=== PATIENT | male | born 1995 | race Caucasian/White ===

== ENCOUNTER 2017-05-06 02:18 | Emergency (ER) | payer OTHER ==
[2017-05-06 02:22] VITALS: RESP 17; TEMP 100.2
[2017-05-06] MEDS ORDERED: PROMETHAZ-COD 6.25-10 MG/5 ML 5 ML CUP PO STA (02:44)
[2017-05-06] MEDS ORDERED: predniSONE 20 MG TAB PO STA (02:44)
--- NOTE | 2017-05-06 02:50 | ED ---
General Adult HPI - General Chief complaint: Upper Respiratory Infection Stated complaint: Coughing blood Time Seen by Provider: 05/06/17 02:38 Source: EMS, RN notes reviewed Mode of arrival: EMS Limitations: no limitations - History of Present Illness Initial comments: 21 yo male presents to the ER with cc of cough cold like symptoms. Patient has been states last few days she was placed on Augmentin on night he just continued to cough to the point that he had a little bit of blood mixed with the dry cough from throat irritation. He denies any high fevers with this. He states that he does not have any history of asthma. Patient was concerned because his cough just was not improving so he thought that he should be evaluated. Patient denies any recent fever, chills, chest pain, back pain, abdominal pain, nausea vomiting, numbness or tingling, dysuria or hematuria, constipation or diarrhea, headaches or visual changes, or any other current symptoms. - Related Data Previous Rx's Medication Instructions Recorded Divalproex ER [Depakote ER] 1,000 mg PO HS #60 tab 03/23/17 Escitalopram [Lexapro] 10 mg PO DAILY #30 tab 03/23/17 Nicotine 7Mg/24Hr Patch [Habitrol] 1 patch TRANSDERM DAILY #12 patch 03/23/17 Albuterol Inhaler [Ventolin Hfa 1 - 2 puff INHALATION Q4-6H PRN #1 05/06/17 Inhaler] inhaler Promethaz-Cod 6.25-10 mg/5 ml 5 ml PO Q4HR PRN #25 ml 05/06/17 [Phenergan with Codeine] predniSONE 50 mg PO DAILY #5 tab 05/06/17 Allergies Allergy/AdvReac Type Severity Reaction Status Date / Time No Known Allergies Allergy Verified 03/18/17 21:00 Review of Systems ROS Statement: Those systems with pertinent positive or pertinent negative responses have been documented in the HPI. ROS Other: All systems not noted in ROS Statement are negative. Past Medical History Past Medical History: Asthma, Pneumonia Additional Past Medical History / Comment(s): torn ACL right leg no repair done at this time. 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 History of Any Multi-Drug Resistant Organisms: None Reported Past Surgical History: No Surgical Hx Reported Additional Past Surgical History / Comment(s): wisdom teeth extraction Past Anesthesia/Blood Transfusion Reactions: No Reported Reaction Past Psychological History: ADD/ADHD, Anxiety, Depression Smoking Status: Current every day smoker - Past Family History Mother Family Medical History: Diabetes Mellitus, Hypertension Additional Family Medical History / Comment(s): MS, Fibromyalgia, stroke times two Father Family Medical History: Hyperlipidemia, Hypertension Additional Family Medical History / Comment(s): father is 55 years of age. Patient has 1 sister with no major medical problems. General Exam - General Exam Comments Initial Comments: General exam: Alert, active, comfortable in no apparent distress Head: Normocephalic Eyes: Normal reaction of pupils, equal size, normal range of extraocular motion Ears: normal external ear canals, pink tympanic membranes with normal cone of light Nose: clear with pink turbinates Throat: no erythema or exudates with normal sized tonsils Neck: no masses, no nuchal rigidity Chest: no chest wall deformity Lungs: equal air entry with no crackles, expiratory wheeze CVS: S1 and S2 normal with no audible mumurs, regular rhythm Abdomen: no hepatosplenomegaly, normal bowel sounds, no guarding or rigidity Spine: no scoliosis or deformity Skin: no rashes Neurological: No focal deficits, tone is normal in all 4 extremities Limitations: no limitations Course Vital Signs 05/06/17 05/06/17 05/06/17 02:19 02:39 03:23 Temperature 100.2 F H Pulse Rate 77 71 Respiratory 17 Rate Blood Pressure 130/80 O2 Sat by Pulse 91 L 96 Oximetry Medical Decision Making - Medical Decision Making 21-year-old female presents emergency Department chief complaint of what appears to be a bronchitis. Patient was coughing so hard that he had some throat irritation did have some flecks of blood. He denies any chest pain with this. He states after the breathing treatment shortness of breath has improved. Patient does have wheezing exam. At this time we will start patient steroids as well in addition to his Augmentin give him some cough medication. We discussed follow-up return parameters all questions. Patient stated that he understood he is given plan. He'll be discharged. - Radiology Data Radiology results: report reviewed, image reviewed Disposition Clinical Impression: Acute bronchitis Disposition: HOME SELF-CARE Condition: Stable Instructions: Acute Bronchitis (ED) Additional Instructions: Please use medication as discussed. Please follow up with family doctor if symptoms have not improved over the next two days. Please return to the emergency room if your symptoms increase or worsen or for any other concerns. Prescriptions: Albuterol Inhaler [Ventolin Hfa Inhaler] 1 - 2 puff INHALATION Q4-6H PRN #1 inhaler PRN Reason: Cough predniSONE 50 mg PO DAILY #5 tab Promethaz-Cod 6.25-10 mg/5 ml [Phenergan with Codeine] 5 ml PO Q4HR PRN #25 ml PRN Reason: Cough Referrals: Denisa Baeza MD [Primary Care Provider] - 1-2 days Time of Disposition: 03:30
--- NOTE | 2017-05-06 03:01 | XR ---
EXAM: XR Chest, 2 Views CLINICAL HISTORY: Reason: cough TECHNIQUE: Frontal and lateral views of the chest. COMPARISON: No relevant prior studies available. FINDINGS: Lungs: Unremarkable. No consolidation. Pleural space: Unremarkable. No pneumothorax. Heart: Unremarkable. No cardiomegaly. Mediastinum: Unremarkable. Bones/joints: Unremarkable. IMPRESSION: Normal chest x-rays.
[2017-05-06] MEDS ORDERED: IPRATROPIUM-ALBUTEROL 3 ML NEB INHALATION STA (03:07)
[2017-05-06 03:38] VITALS: BP 127/72; PULSE 89
== END 2017-05-06 03:40 | disposition home or self-care (01) ==
LOC: EC 02:18
DX: J20.9 Acute bronchitis, unspecified (principal); F17.200 Nicotine dependence, unspecified, uncomplicated; Z87.01 Personal history of pneumonia (recurrent)
CPT/HCPCS: 94640; 71020; 99284; J7512

== ENCOUNTER 2017-08-02 09:49 | Emergency (ER) | payer OTHER ==
[2017-08-02 10:00] VITALS: BP 142/70; PULSE 72; RESP 15; TEMP 98
--- NOTE | 2017-08-02 10:40 | ED ---
General Adult HPI - General Chief complaint: Wound/Laceration Stated complaint: Finger injury Time Seen by Provider: 08/02/17 10:10 Source: patient, RN notes reviewed Mode of arrival: ambulatory Limitations: no limitations - History of Present Illness Initial comments: Patient's a 21-year-old male who presents emergency room today with chief complaint of injury to the right ring finger. He states he was using a snowblower. Ago when he went to clean out in the tip of the blade caught just the distal aspect of the right ring finger and he immediately removed away. Patient is noted to small over the volar aspect of the right ring finger. Patient states she's noticed that his had decreased range of motion at the DIP joint. He denies any other complaints or symptoms. Patient denies any recent fever, chills, shortness of breath, chest pain, back pain, abdominal pain, nausea or vomiting, numbness or tingling, headaches or visual changes, or any other complaints. - Related Data Home Medications Medication Instructions Recorded Confirmed Escitalopram Oxalate [Lexapro] 40 mg PO DAILY 08/02/17 08/02/17 Previous Rx's Medication Instructions Recorded Divalproex ER [Depakote ER] 1,000 mg PO HS #60 tab 03/23/17 Allergies Allergy/AdvReac Type Severity Reaction Status Date / Time No Known Allergies Allergy Verified 08/02/17 10:09 Review of Systems ROS Statement: Those systems with pertinent positive or pertinent negative responses have been documented in the HPI. ROS Other: All systems not noted in ROS Statement are negative. Past Medical History Past Medical History: Asthma, Pneumonia Additional Past Medical History / Comment(s): torn ACL right leg no repair done at this time. 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 History of Any Multi-Drug Resistant Organisms: None Reported Past Surgical History: No Surgical Hx Reported Additional Past Surgical History / Comment(s): wisdom teeth extraction Past Anesthesia/Blood Transfusion Reactions: No Reported Reaction Past Psychological History: ADD/ADHD, Anxiety, Depression Smoking Status: Current every day smoker Past Alcohol Use History: None Reported Past Drug Use History: None Reported - Past Family History Mother Family Medical History: Diabetes Mellitus, Hypertension Additional Family Medical History / Comment(s): MS, Fibromyalgia, stroke times two Father Family Medical History: Hyperlipidemia, Hypertension Additional Family Medical History / Comment(s): father is 55 years of age. Patient has 1 sister with no major medical problems. General Exam - General Exam Comments Initial Comments: General: The patient is awake and alert, in no distress, and does not appear acutely ill. Neck: The neck is supple, there is no tenderness or JVD. Cardiovascular: There is a regular rate and rhythm. No murmur, rub or gallop is appreciated. Respiratory: Lungs are clear to auscultation, respirations are non-labored, breath sounds are equal. No wheezes, stridor, rales, or rhonchi. Musculoskeletal: Patient does have some swelling to the right ring finger distally. Shows good range of motion. Does have tenderness of the middle phalanx and DIP joint area. Sensations are intact pulses equal bilaterally 2+. Cap refill less than 2 seconds. Neurological: A&O x 3. CN II-XII intact, There are no obvious motor or sensory deficits. Coordination appears grossly intact. Speech is normal. Skin: There is a 0.5 cm horizontal laceration to the volar aspect of the distal phalanx of the right ring finger. No active bleeding and no open wound. Psychiatric: Normal mood and affect. Limitations: no limitations Course Vital Signs 08/02/17 09:57 Temperature 98 F Pulse Rate 72 Respiratory 15 Rate Blood Pressure 142/70 O2 Sat by Pulse 98 Oximetry Medical Decision Making - Medical Decision Making Patient reexamined at this time shows no signs of distress. His x-rays negative for any fracture or dislocation. Patient was offered finger splint here in the emergency room he states he has one at home. Patient is advised follow-up with orthopedics if symptoms aren't improved. He does show somewhat limited range of motion of the DIP joint area due to pain swelling. He is advised ice elevate to help swelling. Use ibuprofen for pain. Disposition Clinical Impression: Finger contusion Disposition: HOME SELF-CARE Condition: Good Instructions: Finger Sprain (ED) Additional Instructions: Please follow-up with the orthopedic doctor over the next few days. Please continue to ice elevate the affected area and use ibuprofen for pain. Return to emergency room for any other concerns. Referrals: Denisa Baeza MD [Primary Care Provider] - 1-2 days Tahir Shelley MD [Medical Doctor] - 1-2 days Time of Disposition: 11:07
--- NOTE | 2017-08-02 10:48 | XR ---
EXAMINATION TYPE: XR finger RT DATE OF EXAM: 08/02/2017 CLINICAL HISTORY: pain Right fourth digit. TECHNIQUE: 3 views of the Right fourth digit are submitted. COMPARISON: None FINDINGS: No displaced fracture is seen with certainty. Joint spaces are well-preserved. Correlate for soft tissue injury. IMPRESSION: No acute displaced fracture or dislocation.
== END 2017-08-02 11:15 | disposition home or self-care (01) ==
LOC: EC 09:49
DX: S60.041A Contusion of right ring finger without damage to nail, initial encounter (principal); F90.9 Attention-deficit hyperactivity disorder, unspecified type; F32.9 Major depressive disorder, single episode, unspecified; F41.9 Anxiety disorder, unspecified; F17.200 Nicotine dependence, unspecified, uncomplicated; Z79.899 Other long term (current) drug therapy; W23.0XXA Caught, crushed, jammed, or pinched between moving objects, initial encounter; Y93.29 Activity, other involving ice and snow; Y92.89 Other specified places as the place of occurrence of the external cause
CPT/HCPCS: 99283

== ENCOUNTER 2017-10-24 19:34 | Emergency (ER) | payer OTHER ==
[2017-10-24 20:12] VITALS: BP 132/69; PULSE 67; RESP 16; TEMP 98.8
[2017-10-24] MEDS ORDERED: DIPH,PERTUS(ACELL)TETVAC-LF 0.5 ML VIAL IM ONE (20:25)
--- NOTE | 2017-10-24 20:30 | ED ---
Skin/Abscess/FB HPI - General Chief complaint: Skin/Abscess/Foreign Body Stated complaint: nail puncture L foor Time Seen by Provider: 10/24/17 20:21 Source: patient, RN notes reviewed Mode of arrival: ambulatory Limitations: no limitations - History of Present Illness Initial comments: This is a 21-year-old male who presents to the emergency department with chief complaint of puncture wound to his left foot. Patient states that around 3 PM this afternoon he was doing construction on a house. He states that he stepped on a nail and it went through his boot and into his left foot just below his great toe. Patient states that he is able to bear weight and ambulate but does so with difficulty due to pain. He states that his foot feels numb. He states that it his last tetanus shot was in 2010. Denies any other injuries or trauma. Has no ALLERGIES to medications. Denies fever, chills, chest pain, shortness of breath, abdominal pain, nausea or vomiting, constipation or diarrhea, headache or vision changes. - Related Data Home Medications Medication Instructions Recorded Confirmed Escitalopram [Lexapro] 10 mg PO DAILY 10/24/17 10/24/17 Previous Rx's Medication Instructions Recorded Divalproex ER [Depakote ER] 1,000 mg PO HS #60 tab 03/23/17 Ciprofloxacin HCl 500 mg PO BID 10 Days #20 tab 10/24/17 Sulfamethox-Tmp 800-160Mg [Bactrim 1 tab PO Q12HR #20 tab 10/24/17 DS 800-160 mg] Allergies Allergy/AdvReac Type Severity Reaction Status Date / Time No Known Allergies Allergy Verified 10/24/17 20:45 Review of Systems ROS Statement: Those systems with pertinent positive or pertinent negative responses have been documented in the HPI. ROS Other: All systems not noted in ROS Statement are negative. Past Medical History Past Medical History: Asthma, Pneumonia Additional Past Medical History / Comment(s): torn ACL right leg no repair done at this time. 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 History of Any Multi-Drug Resistant Organisms: None Reported Past Surgical History: No Surgical Hx Reported Additional Past Surgical History / Comment(s): wisdom teeth extraction Past Anesthesia/Blood Transfusion Reactions: No Reported Reaction Past Psychological History: ADD/ADHD, Anxiety, Depression Smoking Status: Current every day smoker Past Alcohol Use History: None Reported Past Drug Use History: None Reported - Past Family History Mother Family Medical History: Diabetes Mellitus, Hypertension Additional Family Medical History / Comment(s): MS, Fibromyalgia, stroke times two Father Family Medical History: Hyperlipidemia, Hypertension Additional Family Medical History / Comment(s): father is 55 years of age. Patient has 1 sister with no major medical problems. General Exam - General Exam Comments Initial Comments: General: Awake and alert, well-developed; in no apparent distress. HEENT: Head atraumatic, normocephalic. Pupils are equal, round and reactive to light. Extraocular movements intact. Oropharynx moist without erythema or exudate. Neck: Supple. Normal ROM. Cardiovascular: Regular rate and rhythm. No murmurs, rubs or gallops. Chest symmetrical. Respiratory: Lungs clear to auscultation bilaterally. No wheezes, rales or rhonchi. Normal respiratory effort with no use of accessory muscles. Musculoskeletal: Normal ROM of left ankle and foot. Generalized tenderness on palpation of the distal foot. Sensation is intact. Pedal pulses are 2+ equal and palpable bilaterally. Skin: Fonda, warm and dry. Small circular puncture wound inferior to the great toe plantar surface of left foot. Neurological: Alert and oriented x3. CN II-XII grossly intact. Speech is fluent and answers are appropriate. No focal neuro deficits. Psychiatric: Normal mood and affect. No overt signs of depression or anxiety noted. Limitations: no limitations Course Vital Signs 10/24/17 20:09 Temperature 98.8 F Pulse Rate 67 Respiratory 16 Rate Blood Pressure 132/69 O2 Sat by Pulse 97 Oximetry Medical Decision Making - Medical Decision Making This is a 21-year-old male who presents to the emergency department with chief complaint of puncture wound to his left foot. He stepped on a nail earlier this afternoon. He was made up-to-date with his tetanus vaccination in the emergency department. X-ray was obtained and revealed no acute abnormalities. Patient will be started on Cipro for pseudomonal coverage and Bactrim. Patient' s vital signs are stable and he is in no acute distress. He will be discharged home at this time. He is in agreement with plan and voices understanding. All questions were answered. - Radiology Data Radiology results: report reviewed, image reviewed X-ray left foot impression: Negative left foot exam. Disposition Clinical Impression: Puncture wound Disposition: HOME SELF-CARE Condition: Good Instructions: Puncture Wound (ED) Additional Instructions: Please take medications as prescribed. Please follow up with primary care provider within 1-2 days. Return to emergency department if symptoms should worsen or any concerns arise. Prescriptions: Ciprofloxacin HCl 500 mg PO BID 10 Days #20 tab Sulfamethox-Tmp 800-160Mg [Bactrim DS 800-160 mg] 1 tab PO Q12HR #20 tab Is patient prescribed a controlled substance at d/c from ED?: No Referrals: Denisa Baeza MD [Primary Care Provider] - 1-2 days Time of Disposition: 21:03
--- NOTE | 2017-10-24 20:50 | XR ---
EXAMINATION TYPE: XR foot complete LT DATE OF EXAM: 10/24/2017 COMPARISON: NONE HISTORY: Pain and swelling TECHNIQUE: 3 views FINDINGS: I see no fracture nor dislocation. Metatarsals are intact. Joint spaces are normal. IMPRESSION: Negative left foot exam.
[2017-10-24] MEDS ORDERED: SULFAMETHOX-TMP 800-160MG 1 EACH TAB PO STA (20:59)
[2017-10-24] MEDS ORDERED: CIPROFLOXACIN HCL 500 MG TAB PO STA (20:59)
== END 2017-10-24 21:10 | disposition home or self-care (01) ==
LOC: EC 19:34
DX: S91.332A Puncture wound without foreign body, left foot, initial encounter (principal); F90.9 Attention-deficit hyperactivity disorder, unspecified type; F32.9 Major depressive disorder, single episode, unspecified; F41.9 Anxiety disorder, unspecified; F17.200 Nicotine dependence, unspecified, uncomplicated; Z23 Encounter for immunization; Z79.899 Other long term (current) drug therapy; W45.0XXA Nail entering through skin, initial encounter; Y92.89 Other specified places as the place of occurrence of the external cause
CPT/HCPCS: 90471; 90715; 99283

== ENCOUNTER 2017-11-10 23:04 | Emergency (ER) | payer OTHER ==
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
--- NOTE | 2017-11-11 00:08 | XR ---
EXAMINATION TYPE: XR ribs RT w pa chest xray DATE OF EXAM: 11/10/2017 COMPARISON: NONE HISTORY: Right rib pain TECHNIQUE: 5 views FINDINGS: Heart and mediastinum are normal. Lungs are clear. The right ribs appear intact. There is n o sign of pleural effusion or pneumothorax. IMPRESSION: Normal chest. Normal right ribs.
[2017-11-11 00:10] VITALS: BP 119/71; PULSE 59; RESP 16; TEMP 97.7
== END 2017-11-11 00:09 | disposition home or self-care (01) ==
LOC: EC 23:04
DX: S20.219A Contusion of unspecified front wall of thorax, initial encounter (principal); F32.9 Major depressive disorder, single episode, unspecified; F41.9 Anxiety disorder, unspecified; F17.200 Nicotine dependence, unspecified, uncomplicated; Z79.899 Other long term (current) drug therapy; Z82.49 Family history of ischemic heart disease and other diseases of the circulatory system; W22.8XXA Striking against or struck by other objects, initial encounter; Y92.69 Other specified industrial and construction area as the place of occurrence of the external cause; Y99.0 Civilian activity done for income or pay
CPT/HCPCS: 99284

== ENCOUNTER 2018-03-04 15:12 | Emergency (ER) | payer OTHER ==
[2018-03-04 15:34] VITALS: BP 134/67; PULSE 74; RESP 18; TEMP 98.2
[2018-03-04] MEDS ORDERED: methylPREDNISolone SOD SUCCI 125 MG/2 ML VIAL IM ONE (17:20)
--- NOTE | 2018-03-04 17:35 | XR ---
EXAMINATION: XR chest 2V DATE AND TIME: 03/04/2018 4:42 PM CLINICAL INDICATION: Pain TECHNIQUE: PA and lateral COMPARISON: 11/10/2017 FINDINGS: The lungs are clear. The pleural spaces are negative. The cardiac silhouette is not enlarged. The remainder of the mediastinal silhouette is unremarkable. The skeletal structures and soft tissues are negative for acute findings. IMPRESSION: NO ACUTE PROCESS.
--- NOTE | 2018-03-04 17:48 | ED ---
General Adult HPI - General Chief complaint: Upper Respiratory Infection Stated complaint: cough/2 wks Time Seen by Provider: 03/04/18 16:12 Source: patient, RN notes reviewed Mode of arrival: ambulatory Limitations: no limitations - History of Present Illness Initial comments: 22-year-old male presents to the emergency department for a chief complaint of cough 2 weeks. Patient states the cough is a dry cough. He denies any productivity. Patient admits to mild shortness of breath when coughing. He denies fevers or chills at home. Patient denies any chest pain. Patient admits to a childhood history of asthma but has not had any symptoms of asthma since he was 9 years old. Patient is a smoker daily. Patient states he tried a breathing treatment at home because his mother had some and it made him feel "weird" so he does not want one here. Patient has no other complaints at this time including chest pain, abdominal pain, nausea or vomiting, headache, or visual changes. - Related Data Home Medications Medication Instructions Recorded Confirmed Escitalopram [Lexapro] 10 mg PO DAILY 10/24/17 11/10/17 Previous Rx's Medication Instructions Recorded Divalproex ER [Depakote ER] 1,000 mg PO HS #60 tab 03/23/17 Albuterol Inhaler [Ventolin Hfa 1 - 2 puff INHALATION Q6HR PRN #1 03/04/18 Inhaler] inhaler Azithromycin [Zithromax Z-pack] 250 mg PO DIRECTED #6 tab 03/04/18 Benzonatate [Tessalon Perles] 200 mg PO Q8H PRN #15 capsule 03/04/18 predniSONE 50 mg PO DAILY #5 tablet 03/04/18 Allergies Allergy/AdvReac Type Severity Reaction Status Date / Time No Known Allergies Allergy Verified 03/04/18 15:34 Review of Systems ROS Statement: Those systems with pertinent positive or pertinent negative responses have been documented in the HPI. ROS Other: All systems not noted in ROS Statement are negative. Past Medical History Past Medical History: Asthma, Pneumonia Additional Past Medical History / Comment(s): torn ACL right leg no repair done at this time. 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 History of Any Multi-Drug Resistant Organisms: None Reported Past Surgical History: No Surgical Hx Reported Additional Past Surgical History / Comment(s): wisdom teeth extraction Past Anesthesia/Blood Transfusion Reactions: No Reported Reaction Past Psychological History: ADD/ADHD, Anxiety, Depression Smoking Status: Current every day smoker Past Alcohol Use History: None Reported Past Drug Use History: None Reported - Past Family History Mother Family Medical History: Diabetes Mellitus, Hypertension Additional Family Medical History / Comment(s): MS, Fibromyalgia, stroke times two Father Family Medical History: Hyperlipidemia, Hypertension Additional Family Medical History / Comment(s): father is 55 years of age. Patient has 1 sister with no major medical problems. General Exam Limitations: no limitations General appearance: alert (Patient is sleeping in the emergency department in no acute distress), in no apparent distress Head exam: Present: atraumatic, normocephalic, normal inspection Eye exam: Present: normal appearance. Absent: scleral icterus, conjunctival injection ENT exam: Present: normal exam, mucous membranes moist Neck exam: Present: normal inspection, full ROM. Absent: tenderness, meningismus, lymphadenopathy Respiratory exam: Present: wheezes (Wheezing noted throughout all lung stoll.) , other (Patient does not appear in distress, no difficulty breathing, non- labored breathing). Absent: respiratory distress, rales, rhonchi, stridor, chest wall tenderness, accessory muscle use, decreased breath sounds, prolonged expiratory Cardiovascular Exam: Present: regular rate, normal rhythm, normal heart sounds. Absent: systolic murmur, diastolic murmur, rubs, gallop, clicks Extremities exam: Present: full ROM (Moving all extremities without difficulty) Neurological exam: Present: alert, oriented X3, CN II-XII intact Psychiatric exam: Present: normal affect, normal mood Course Vital Signs 03/04/18 15:33 Temperature 98.2 F Pulse Rate 74 Respiratory 18 Rate Blood Pressure 134/67 O2 Sat by Pulse 98 Oximetry Medical Decision Making - Medical Decision Making 22-year-old male presents the emergency department for a chief complaint of cough 2 weeks along with mild shortness of breath when coughing. Patient denies chest pain. Patient does have a history of childhood asthma but has not had any symptoms since that time. Patient is a smoker. Patient states cough is nonproductive. Denies fevers or chills at home. Temp 98.2 in the emergency department with a pulse rate of 74. Respiratory rate 18 with a pulse ox of 98% on room air. On exam patient has wheezing noted throughout lung stoll. Patient refused DuoNeb at this time as he had one of his mothers breathing treatment and it made him feel "weird." Did discuss it could help break up mucus and improve his wheezing but he still refuses. Patient given IM Solu- Medrol in the emergency department. Chest x-ray shows no acute process. Pleural spaces are negative. On reevaluation patient is still in no acute distress, no shortness of breath or difficulty breathing. Patient will be given steroids, azithromycin, inhaler, and Tessalon Perles. He will follow up with primary care in 1-2 days. He will return if he has any worsening symptoms such as fever or increased shortness of breath. He was also advised to quit smoking or at least to decrease smoking as much as possible. Disposition Clinical Impression: Cough Disposition: HOME SELF-CARE Condition: Good Instructions: Upper Respiratory Infection (ED) Prescriptions: Albuterol Inhaler [Ventolin Hfa Inhaler] 1 - 2 puff INHALATION Q6HR PRN #1 inhaler PRN Reason: Shortness Of Breath Azithromycin [Zithromax Z-pack] 250 mg PO DIRECTED #6 tab Benzonatate [Tessalon Perles] 200 mg PO Q8H PRN #15 capsule PRN Reason: Cough predniSONE 50 mg PO DAILY #5 tablet Is patient prescribed a controlled substance at d/c from ED?: No Referrals: Denisa Baeza MD [Primary Care Provider] - 1-2 days Time of Disposition: 17:44
== END 2018-03-04 19:07 | disposition home or self-care (01) ==
LOC: EC 15:12
DX: R05 Cough (principal); R06.2 Wheezing; R06.02 Shortness of breath; Q33.3 Agenesis of lung; F32.9 Major depressive disorder, single episode, unspecified; F41.9 Anxiety disorder, unspecified; F17.200 Nicotine dependence, unspecified, uncomplicated; Z79.899 Other long term (current) drug therapy; Z87.09 Personal history of other diseases of the respiratory system
CPT/HCPCS: 99284; 96372; 71046; J2930

== ENCOUNTER 2018-06-28 20:35 | Emergency (ER) | payer OTHER ==
[2018-06-28 20:44] VITALS: BP 114/75; PULSE 78; RESP 18; TEMP 98.1
--- NOTE | 2018-06-28 21:02 | ED ---
General Adult HPI - General Chief complaint: Wound/Laceration Stated complaint: [facility] Lac on finger, rt hand Source: patient, RN notes reviewed, old records reviewed Mode of arrival: ambulatory Limitations: no limitations - History of Present Illness Initial comments: 21-year-old male patient with past medical history of bipolar 1 disorder, depression presents in ED with laceration to PIP joint on second digit of right hand. Patient states that earlier today he was using a drill when the bit made contact with his glove at the PIP joint. Patient states that he suffered a small laceration and was bleeding. Patient denies the drillbit breaking or any foreign body. Patient has full range of motion of digit. Patient denies all other complaints. Patient states that he had his tetanus updated last year. Systemic: Pt denies fatigue, myalgia, fever/chills, rash. Pt denies weakness, night sweats, weight loss. Neuro: Pt denies headache, visual disturbances, syncope or pre-syncope. HEENT: Pt denies ocular discharge or irritation, otalgia, rhinorrhea, pharyngitis or notable lymphadenopathy. Cardiopulmonary: Pt denies chest pain, SOB, heart palpitations, dyspnea on exertion. Abdominal/GI: Pt denies abdominal pain, n/v/d. : Pt denies dysuria, burning w/ urination, frequency/urgency. Denies new onset urinary or bowel incontinence. MSK: Pt denies myalgia, loss of strength or function in extremities. Neuro: Pt denies new onset weakness, paresthesias. - Related Data Home Medications Medication Instructions Recorded Confirmed Escitalopram [Lexapro] 10 mg PO DAILY 10/24/17 11/10/17 Previous Rx's Medication Instructions Recorded Divalproex ER [Depakote ER] 1,000 mg PO HS #60 tab 03/23/17 Albuterol Inhaler [Ventolin Hfa 1 - 2 puff INHALATION Q6HR PRN #1 03/04/18 Inhaler] inhaler Azithromycin [Zithromax Z-pack] 250 mg PO DIRECTED #6 tab 03/04/18 Benzonatate [Tessalon Perles] 200 mg PO Q8H PRN #15 capsule 03/04/18 predniSONE 50 mg PO DAILY #5 tablet 03/04/18 Allergies Allergy/AdvReac Type Severity Reaction Status Date / Time No Known Allergies Allergy Verified 06/28/18 20:44 Review of Systems ROS Statement: Those systems with pertinent positive or pertinent negative responses have been documented in the HPI. ROS Other: All systems not noted in ROS Statement are negative. Past Medical History Past Medical History: Asthma, Pneumonia Additional Past Medical History / Comment(s): torn ACL right leg no repair done at this time. 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 History of Any Multi-Drug Resistant Organisms: None Reported Past Surgical History: No Surgical Hx Reported Additional Past Surgical History / Comment(s): wisdom teeth extraction Past Anesthesia/Blood Transfusion Reactions: No Reported Reaction Past Psychological History: ADD/ADHD, Anxiety, Depression Smoking Status: Current every day smoker Past Alcohol Use History: None Reported Past Drug Use History: None Reported - Past Family History Mother Family Medical History: Diabetes Mellitus, Hypertension Additional Family Medical History / Comment(s): MS, Fibromyalgia, stroke times two Father Family Medical History: Hyperlipidemia, Hypertension Additional Family Medical History / Comment(s): father is 55 years of age. Patient has 1 sister with no major medical problems. General Exam - General Exam Comments Initial Comments: Constitutional: NAD, AOX3, Pt has pleasant affect. HEENT: NC/AT, trachea midline, neck supple, no lymphadenopathy. Posterior pharynx non erythematous, without exudates. External ears appear normal, without discharge. Mucous membranes moist. Eyes PERRLA, EOM intact. There is no scleral icterus. No pallor noted. Cardiopulmonary: RRR, no murmurs, rubs or gallops, no JVD noted. Lungs CTAB in anterior and posterior stoll. No peripheral edema. Abdominal exam: Abdomen soft and non-distended. Abdomen non-tender to palpation in all 4 quadrants. Bowel sounds active in LLQ. No hepatosplenomegaly. No ecchymosis Neuro: CN II-XII grossly intact. No nuchal rigidity. MSK: 1 CM laceration noted at PIP joint on 2nd digit of R hand. No other injury noted, neurovascularly intact capillary refill <2 seconds. Flexion/extension intact at MCP joint, PIP joint, ETHAN joint. Wound explored, no bony or ligamentous involvement. No foreign body. No posterior calf tenderness bilaterally, homans sign negative bilaterally. Posterior tibialis and radial pulse +2 bilaterally. Sensation intact in upper and lower extremities. Full active ROM in upper and lower extremities, 5/5 stregnth. Limitations: no limitations Course Vital Signs 06/28/18 20:41 Temperature 98.1 F Pulse Rate 78 Respiratory 18 Rate Blood Pressure 114/75 O2 Sat by Pulse 98 Oximetry Procedures - Laceration Laceration #1 Consent Obtained: verbal consent Time Out Performed: Yes Indication: laceration Site: hand Size (cm): 1 Description: linear Depth: simple, single layer Anesthetic Used: lidocaine 1% Anesthesia Technique: local infiltration Amount (mls): 1 Pre-repair: wound explored, deep structures intact Type of Sutures: nylon Size of Sutures: 5-0 Number of Sutures: 2 Technique: simple, interrupted Patient Tolerated Procedure: well, no complications Medical Decision Making - Medical Decision Making 21-year-old male patient with past medical history of bipolar 1 disorder, depression presents in ED with laceration to PIP joint on second digit of right hand. Patient states that earlier today he was using a drill when the bit made contact with his glove at the PIP joint. Patient states that he suffered a small laceration and was bleeding. 1 CM laceration noted at PIP joint on 2nd digit of R hand. No other injury noted, neurovascularly intact capillary refill <2 seconds. Flexion/extension intact at MCP joint, PIP joint, ETHAN joint. Wound explored, no bony or ligamentous involvement. No foreign body. Plain film of right hand didn't display any acute fracture or foreign body. Wound closed with 2 simple interrpted sutures. Pt to return in 7-10 days for suture removal. Patient educated extensively about signs symptoms of infection, patient verbalized understanding. Patient to f/u with PCP in 1-2 days. Pt to return to ED if new s/sx develop or if condition worsens in anyway. Case discussed in depth with Dr. Monaco. Disposition Clinical Impression: Laceration Disposition: HOME SELF-CARE Condition: Good Instructions: Care For Your Stitches (ED), Laceration (ED) Additional Instructions: Patient to adhere to previously discussed treatment plan and will take medication(s) as directed. Patient to follow up with PCP in 1-2 days. Patient to return to ED if symptoms do not improve. Is patient prescribed a controlled substance at d/c from ED?: No Referrals: None,Stated [Primary Care Provider] - 1-2 days Time of Disposition: 22:24
--- NOTE | 2018-06-28 21:46 | XR ---
EXAMINATION TYPE: XR hand complete RT DATE OF EXAM: 06/28/2018 COMPARISON: 08/02/2017 HISTORY: Interval but lacerated index finger TECHNIQUE: Three-view right hand FINDINGS: No acute fractures are evident. Joint spaces are preserved. Soft tissues appear preserved. No radiopaque foreign body is evident. IMPRESSION: 1. No acute fracture. 2. No foreign body.
[2018-06-28] MEDS ORDERED: TOPICAL SKIN ADHESIVE 1 EACH AMP TOPICAL ONE (21:55)
[2018-06-28] MEDS ORDERED: LIDOCAINE 1% INJ 10MG/ML (20 ML MDV) SQ STA (21:59)
== END 2018-06-28 22:33 | disposition home or self-care (01) ==
LOC: EC 20:35
DX: S61.210A Laceration without foreign body of right index finger without damage to nail, initial encounter (principal); F41.9 Anxiety disorder, unspecified; F32.9 Major depressive disorder, single episode, unspecified; F17.200 Nicotine dependence, unspecified, uncomplicated; Z79.899 Other long term (current) drug therapy; W26.8XXA Contact with other sharp object(s), not elsewhere classified, initial encounter; Y92.69 Other specified industrial and construction area as the place of occurrence of the external cause; Y99.0 Civilian activity done for income or pay
CPT/HCPCS: 73130; 99283; 12001; J2001

== ENCOUNTER 2018-09-24 22:12 | Emergency (ER) | payer OTHER ==
[2018-09-24 22:36] VITALS: BP 109/70; PULSE 57; RESP 18; TEMP 98.6
--- NOTE | 2018-09-24 23:26 | ED ---
General Adult HPI - General Chief complaint: Extremity Injury, Upper Stated complaint: Shoulder pain Time Seen by Provider: 09/24/18 22:46 Source: patient, RN notes reviewed Mode of arrival: ambulatory Limitations: no limitations - History of Present Illness Initial comments: 22-year-old male presents to the emergency department for a chief complaint of right shoulder pain 3 weeks. 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 States that when he went to lift it he felt a pop in his right shoulder. Patient states he has had pain in the right shoulder since that time and he is now unable to fully move his right shoulder. Patient states he also feels like the right side of his neck is painful and he could not turn his head all the way. He denies any midline neck tenderness. Patient has no other complaints at this time including shortness of breath, chest pain, abdominal pain, nausea or vomiting, headache, or visual changes. - Related Data Home Medications Medication Instructions Recorded Confirmed Escitalopram [Lexapro] 10 mg PO DAILY 10/24/17 11/10/17 Previous Rx's Medication Instructions Recorded Divalproex ER [Depakote ER] 1,000 mg PO HS #60 tab 03/23/17 Albuterol Inhaler [Ventolin Hfa 1 - 2 puff INHALATION Q6HR PRN #1 03/04/18 Inhaler] inhaler Azithromycin [Zithromax Z-pack] 250 mg PO DIRECTED #6 tab 03/04/18 Benzonatate [Tessalon Perles] 200 mg PO Q8H PRN #15 capsule 03/04/18 predniSONE 50 mg PO DAILY #5 tablet 03/04/18 Allergies Allergy/AdvReac Type Severity Reaction Status Date / Time No Known Allergies Allergy Verified 09/24/18 22:36 Review of Systems ROS Statement: Those systems with pertinent positive or pertinent negative responses have been documented in the HPI. ROS Other: All systems not noted in ROS Statement are negative. Past Medical History Past Medical History: Asthma, Pneumonia Additional Past Medical History / Comment(s): torn ACL right leg no repair done at this time. 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 History of Any Multi-Drug Resistant Organisms: None Reported Past Surgical History: No Surgical Hx Reported Additional Past Surgical History / Comment(s): wisdom teeth extraction Past Anesthesia/Blood Transfusion Reactions: No Reported Reaction Past Psychological History: ADD/ADHD, Anxiety, Depression Smoking Status: Current every day smoker Past Alcohol Use History: None Reported Past Drug Use History: None Reported - Past Family History Mother Family Medical History: Diabetes Mellitus, Hypertension Additional Family Medical History / Comment(s): MS, Fibromyalgia, stroke times two Father Family Medical History: Hyperlipidemia, Hypertension Additional Family Medical History / Comment(s): father is 55 years of age. Patient has 1 sister with no major medical problems. General Exam Limitations: no limitations General appearance: alert, in no apparent distress Head exam: Present: atraumatic, normocephalic, normal inspection Eye exam: Present: normal appearance, PERRL, EOMI. Absent: scleral icterus, conjunctival injection, periorbital swelling ENT exam: Present: normal exam, normal oropharynx, mucous membranes moist, TM's normal bilaterally, normal external ear exam Neck exam: Present: tenderness (tenderness noted to the right paraspinal cervical muscle. No midline tenderness). Absent: meningismus, full ROM (30 degrees lateral rotation to the right and 60 degrees to the left), lymp hadenopathy Respiratory exam: Present: normal lung sounds bilaterally. Absent: respiratory distress, wheezes, rales, rhonchi, stridor Cardiovascular Exam: Present: regular rate, normal rhythm, normal heart sounds. Absent: systolic murmur, diastolic murmur, rubs, gallop, clicks Extremities exam: Present: tenderness (Tenderness noted to the trapezius muscles. To the right shoulder.), normal capillary refill (Capillary refill less than 2 seconds, radial pulse 2+ in the right upper extremity), other (Sensation intact in the right upper extremity, bar host/hostess strength 5 out of 5. Positive Nair sign, positive empty can test). Absent: full ROM (Patient has about 90 of flexion and extension of the right shoulder.), joint swelling Neurological exam: Present: alert, oriented X3, CN II-XII intact Psychiatric exam: Present: normal affect, normal mood Course Vital Signs 09/24/18 22:33 Temperature 98.6 F Pulse Rate 57 L Respiratory 18 Rate Blood Pressure 109/70 O2 Sat by Pulse 99 Oximetry Medical Decision Making - Medical Decision Making 22-year-old male presents to the emergency department for right shoulder pain after feeling a pop at work. Patient has about 90 flexion and extension of the right shoulder but does have pain with range of motion. Tenderness noted to the trapezius muscle in the right side of the cervical leg as well as the superior right shoulder. X-ray of the right shoulder shows no acute fracture or dislocation. Soft tissues are unremarkable. At this time may have a ligamentous injury of the right shoulder or strain of the trapezius muscle. Patient was not put in a sling to prevent frozen shoulder. Discussed the patient to do range of motion exercises with the right shoulder as often as possible as his right shoulder seems to be decreasing and range of motion. Discussed following up with orthopedics. Discussed returning here if he has any worsening symptoms or fevers which he does agree to do. Disposition Clinical Impression: Shoulder pain, right Disposition: HOME SELF-CARE Condition: Good Instructions (If sedation given, give patient instructions): Shoulder Pain (ED) Additional Instructions: Please take Motrin and Tylenol for pain. Do range of motion exercises with the right shoulder. Follow-up with primary care in 1-2 days. Return here to the emergency department if you have any worsening symptoms. Is patient prescribed a controlled substance at d/c from ED?: No Referrals: Denisa Baeza MD [Primary Care Provider] - 1-2 days Jamel An MD [STAFF PHYSICIAN] - 1-2 days Time of Disposition: 23:36
--- NOTE | 2018-09-24 23:33 | XR ---
EXAM: XR Right Shoulder Complete, 2 or More Views CLINICAL HISTORY: ITS.REASON XR Reason: Pain TECHNIQUE: Two or more views of the right shoulder. COMPARISON: No relevant prior studies available. FINDINGS: Bones/joints: Unremarkable. No acute fracture. No dislocation. Soft tissues: Unremarkable. IMPRESSION: No fracture
[2018-09-25] MEDS ORDERED: IBUPROFEN 600 MG STARTER PACK 4 TAB BTL PO STA (00:03)
== END 2018-09-25 00:11 | disposition home or self-care (01) ==
LOC: EC 22:12
DX: M25.511 Pain in right shoulder (principal); F41.9 Anxiety disorder, unspecified; F32.9 Major depressive disorder, single episode, unspecified; F17.200 Nicotine dependence, unspecified, uncomplicated; Z87.01 Personal history of pneumonia (recurrent); Z79.899 Other long term (current) drug therapy
CPT/HCPCS: 99283

== ENCOUNTER 2019-07-10 20:40 | Emergency (ER) | payer OTHER ==
[2019-07-10 20:55] VITALS: PULSE 80; RESP 18
--- NOTE | 2019-07-10 21:23 | ED ---
Lower Extremity Injury HPI - General Chief Complaint: Extremity Injury, Lower Stated Complaint: knee injury Time Seen by Provider: 07/10/19 21:04 Source: patient Mode of arrival: ambulatory Limitations: no limitations - History of Present Illness Initial Comments: Patient is a 23-year-old male presenting to emergency Department with complaints of right knee pain after falling last night. Patient states she slipped and fell on some ice landing onto a rock. Patient is having pain and trouble with range of motion of his right knee all day today at work. He admits to history of ACL tear without reconstruction, no other previous injuries or surgeries. He denies any other injuries from this fall. Upon arrival to the ER his vital signs are stable. - Related Data Home Medications Medication Instructions Recorded Confirmed Escitalopram [Lexapro] 10 mg PO DAILY 10/24/17 11/10/17 Previous Rx's Medication Instructions Recorded Divalproex ER [Depakote ER] 1,000 mg PO HS #60 tab 03/23/17 Albuterol Inhaler [Ventolin Hfa 1 - 2 puff INHALATION Q6HR PRN #1 03/04/18 Inhaler] inhaler Azithromycin [Zithromax Z-pack] 250 mg PO DIRECTED #6 tab 03/04/18 Benzonatate [Tessalon Perles] 200 mg PO Q8H PRN #15 capsule 03/04/18 predniSONE 50 mg PO DAILY #5 tablet 03/04/18 Allergies Allergy/AdvReac Type Severity Reaction Status Date / Time No Known Allergies Allergy Verified 09/24/18 22:36 Review of Systems ROS Statement: Those systems with pertinent positive or pertinent negative responses have been documented in the HPI. ROS Other: All systems not noted in ROS Statement are negative. Past Medical History Past Medical History: Asthma, Pneumonia Additional Past Medical History / Comment(s): torn ACL right leg no repair done at this time. 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 History of Any Multi-Drug Resistant Organisms: None Reported Past Surgical History: No Surgical Hx Reported Additional Past Surgical History / Comment(s): wisdom teeth extraction Past Anesthesia/Blood Transfusion Reactions: No Reported Reaction Past Psychological History: ADD/ADHD, Anxiety, Depression Smoking Status: Current every day smoker Past Alcohol Use History: None Reported Past Drug Use History: Marijuana - Past Family History Mother Family Medical History: Diabetes Mellitus, Hypertension Additional Family Medical History / Comment(s): MS, Fibromyalgia, stroke times two Father Family Medical History: Hyperlipidemia, Hypertension Additional Family Medical History / Comment(s): father is 55 years of age. Patient has 1 sister with no major medical problems. General Exam - General Exam Comments Initial Comments: GENERAL: Well-appearing, well-nourished and in no acute distress. HEAD: Atraumatic, normocephalic. EYES: Pupils equal round and reactive to light, extraocular movements intact, sclera anicteric, conjunctiva are normal. ENT: Moist mucous membranes. NECK: Normal range of motion, supple without lymphadenopathy or JVD. LUNGS: Breath sounds clear to auscultation bilaterally and equal. No wheezes rales or rhonchi. HEART: Regular rate and rhythm without murmurs, rubs or gallops. ABDOMEN: Soft, nontender, normoactive bowel sounds. No guarding, no rebound. No masses appreciated. EXTREMITIES: Mild pain with palpation of the right patella, increased pain with flexion and extension. There is some mild bruising of the patella. Neurovascular intact. PSYCH: Normal mood, normal affect. SKIN: Warm, Dry, normal turgor, no rashes or lesions noted. Limitations: no limitations Course Vital Signs 07/10/19 07/10/19 20:52 22:04 Temperature 97 F L 98.6 F Pulse Rate 80 80 Respiratory 18 18 Rate Blood Pressure 126/77 124/76 O2 Sat by Pulse 100 Oximetry Medical Decision Making - Medical Decision Making Patient is 23-year-old male with right knee pain after slipping and falling on it yesterday. X-rays today reveal no acute abnormalities. I discussed these findings the patient and suggested as well as likely a knee contusion. Patient will use ice and Tylenol Motrin for pain relief. He is in agreement with this plan of care. He will follow up with PCP if symptoms persist after 2 weeks. Disposition Clinical Impression: Contusion of right knee Disposition: HOME SELF-CARE Condition: Stable Instructions (If sedation given, give patient instructions): Knee Pain (ED) Additional Instructions: Please return to the Emergency Department if symptoms worsen or any other concerns. Apply ice to the knee, take Tylenol or Motrin for pain relief. Follow up with PCP and 2 weeks if symptoms persist. Is patient prescribed a controlled substance at d/c from ED?: No Referrals: Denisa Baeza MD [Primary Care Provider] - 1-2 days
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
[2019-07-10 22:06] VITALS: BP 124/76; TEMP 98.6
== END 2019-07-10 22:11 | disposition home or self-care (01) ==
LOC: EC 20:40
DX: S80.01XA Contusion of right knee, initial encounter (principal); F32.9 Major depressive disorder, single episode, unspecified; F41.9 Anxiety disorder, unspecified; F17.200 Nicotine dependence, unspecified, uncomplicated; Z79.899 Other long term (current) drug therapy; W00.0XXA Fall on same level due to ice and snow, initial encounter; Y93.01 Activity, walking, marching and hiking; Y92.828 Other wilderness area as the place of occurrence of the external cause
CPT/HCPCS: 99283

== ENCOUNTER 2019-08-31 | Emergency (ER) | payer OTHER | END 2019-08-31 14:52 | disposition home or self-care (01) | CPT/HCPCS: 99283 ==

== ENCOUNTER 2019-10-08 13:29 | Emergency (ER) | payer OTHER ==
--- NOTE | 2019-10-08 14:40 | XR ---
EXAMINATION TYPE: XR chest 2V DATE OF EXAM: 10/08/2019 COMPARISON: Chest x-ray March 04, 2018 HISTORY: Injury with pain. TECHNIQUE: Frontal and lateral views of the chest are obtained. FINDINGS: There is no focal air space opacity, pleural effusion, or pneumothorax seen. The cardiac silhouette size is within normal limits. The osseous structures are intact. Overlying left nipple m etallic ornament incidentally noted. IMPRESSION: No acute cardiopulmonary process.
[2019-10-08 14:44] VITALS: RESP 16; TEMP 98.1
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
[2019-10-08] MEDS ORDERED: ACET/COD 300 MG/30 MG STARTER PACK 6 TAB BTL PO STA (14:57)
[2019-10-08 15:17] VITALS: BP 123/82; PULSE 60
== END 2019-10-08 15:21 | disposition home or self-care (01) ==
LOC: EC 13:29
DX: S09.90XA Unspecified injury of head, initial encounter (principal); R22.0 Localized swelling, mass and lump, head; F41.9 Anxiety disorder, unspecified; F32.9 Major depressive disorder, single episode, unspecified; F17.200 Nicotine dependence, unspecified, uncomplicated; Z79.899 Other long term (current) drug therapy; W55.22XA Struck by cow, initial encounter; Y92.69 Other specified industrial and construction area as the place of occurrence of the external cause; Y99.0 Civilian activity done for income or pay
CPT/HCPCS: 70450; 70486; 71046; 72125; 99284

== ENCOUNTER → 2020-07-09 | Outpatient (CLI) | payer OTHER | END | disposition home or self-care (01) | LOC: LABWHC1 10:44 | PROVIDERS: ATTEND Family Medicine | DX: Z20.822 Contact with and (suspected) exposure to COVID-19 (principal) | CPT/HCPCS: U0003; C9803; U0005 ==

== ENCOUNTER → 2020-09-28 | Outpatient (CLI) | payer OTHER | END | disposition home or self-care (01) | LOC: LABWHC1 16:45 | PROVIDERS: ATTEND Family Medicine | DX: Z20.822 Contact with and (suspected) exposure to COVID-19 (principal) | CPT/HCPCS: U0003; C9803; U0005 ==

== ENCOUNTER 2021-01-24 05:36 | Emergency (ER) | payer OTHER ==
[2021-01-24] MEDS ORDERED: SODIUM CHLORIDE 0.9% 1,000 ML IV STA (05:59)
[2021-01-24 06:01] LABS: Glucose,Whole Blood 108 mg/dL (75-99)
[2021-01-24 06:24] LABS: Basophils # (A) 0.1 k/uL (0-0.2); Basophils % (A) 1 %; Eosinophils # (A) 0.1 k/uL (0-0.7); Eosinophils % (A) 1 %; HCT 44.5 % (39.0-53.0); Lymphocytes # (A) 2.1 k/uL (1.0-4.8); Lymphocytes % (A) 23 %; MCHC 33.8 g/dL (31.0-37.0); MCV 97.6 fL (80.0-100.0); Mean Platelet Volume 9.6; Monocytes # (A) 0.5 k/uL (0-1.0); Monocytes % (A) 5 %; Neutrophils # (A) 6.3 k/uL (1.3-7.7); Neutrophils % (A) 68 %; Platelet Count 189 k/uL (150-450); RBC 4.56 m/uL (4.30-5.90); RDW 12.7 % (11.5-15.5); WBC 9.2 k/uL (3.8-10.6)
[2021-01-24 06:33] LABS: Partial Thromboplastin Time 25.5 sec (22.0-30.0); Prothrombin Time 10.6 sec (9.0-12.0)
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
[2021-01-24 06:41] LABS: ALT 32 U/L (4-49); AST 54 U/L (17-59); African American GFR (CKD) >90 (>60 ml/min/1.73 sqM); Albumin 4.7 g/dL (3.5-5.0); Alcohol <10 mg/dL; Alkaline Phosphatase 82 U/L (38-126); Anion Gap 9 mmol/L; Blood Urea Nitrogen 12 mg/dL (9-20); Calcium 9.9 mg/dL (8.4-10.2); Carbon Dioxide 26 mmol/L (22-30); Chloride 107 mmol/L (98-107); Glucose 101 mg/dL (74-99); Non-African American GFR(CKD) >90 (>60 ml/min/1.73 sqM); Potassium 4.3 mmol/L (3.5-5.1); Sodium 142 mmol/L (137-145); Total Bilirubin 0.3 mg/dL (0.2-1.3); Total Protein 7.1 g/dL (6.3-8.2)
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
[2021-01-24 07:12] VITALS: BP 134/86; PULSE 71; RESP 16; TEMP 97.8
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
[2021-01-24] MEDS ORDERED: KETOROLAC 15 MG/ML 1 ML VIAL IVP STA (07:13)
[2021-01-24] MEDS ORDERED: MORPHINE SULFATE 4 MG/ML SYRINGE IVP STA (07:13)
[2021-01-24] MEDS ORDERED: ACET/COD 300 MG/30 MG STARTER PACK 6 TAB BTL PO STA (07:13)
== END 2021-01-24 07:30 | disposition home or self-care (01) ==
LOC: EC 05:36
DX: R07.89 Other chest pain (principal); J45.909 Unspecified asthma, uncomplicated; F32.9 Major depressive disorder, single episode, unspecified; F41.9 Anxiety disorder, unspecified; F17.200 Nicotine dependence, unspecified, uncomplicated; F12.90 Cannabis use, unspecified, uncomplicated; Z79.899 Other long term (current) drug therapy; Z82.49 Family history of ischemic heart disease and other diseases of the circulatory system; Z83.3 Family history of diabetes mellitus; Z83.49 Family history of other endocrine, nutritional and metabolic diseases; V89.2XXA Person injured in unspecified motor-vehicle accident, traffic, initial encounter; Y92.410 Unspecified street and highway as the place of occurrence of the external cause
CPT/HCPCS: 36415; 93005; 86900; 86901; 80053; 84484; 85025; 85610; 85730; 86850; 80320; 73562; 72125; 70450; 71260; 74177; 96374; 96375; 99284; J2270; J1885; Q9967

== ENCOUNTER 2021-01-27 21:23 | Emergency (ER) | payer OTHER ==
[2021-01-27 21:34] VITALS: RESP 18; TEMP 98.6
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
[2021-01-27] MEDS ORDERED: ACET/COD 300 MG/30 MG STARTER PACK 6 TAB BTL PO STA (23:00)
[2021-01-27 23:26] VITALS: BP 119/63; PULSE 98
== END 2021-01-27 23:26 | disposition home or self-care (01) ==
LOC: EC 21:23
DX: S27.321A Contusion of lung, unilateral, initial encounter (principal); J45.909 Unspecified asthma, uncomplicated; F32.9 Major depressive disorder, single episode, unspecified; F41.9 Anxiety disorder, unspecified; F17.200 Nicotine dependence, unspecified, uncomplicated; F12.90 Cannabis use, unspecified, uncomplicated; Z79.899 Other long term (current) drug therapy; Z82.49 Family history of ischemic heart disease and other diseases of the circulatory system; Z83.3 Family history of diabetes mellitus; Z83.49 Family history of other endocrine, nutritional and metabolic diseases; V89.2XXA Person injured in unspecified motor-vehicle accident, traffic, initial encounter; Y92.410 Unspecified street and highway as the place of occurrence of the external cause
CPT/HCPCS: 99283

== ENCOUNTER 2021-03-13 15:23 | Emergency (ER) | payer OTHER ==
[2021-03-13 16:02] VITALS: BP 137/73; PULSE 57; RESP 18; TEMP 98.2
[2021-03-13] MEDS ORDERED: HYDROcodone/APAP 5-325MG 1 EACH TAB PO STA (16:20)
--- NOTE | 2021-03-13 16:24 | ED ---
General Adult HPI - General Chief complaint: Extremity Injury, Lower Stated complaint: right foot injury Time Seen by Provider: 03/13/21 16:07 Source: patient, family, RN notes reviewed Mode of arrival: ambulatory Limitations: no limitations - History of Present Illness Initial comments: The 25-year-old male patient, alert and oriented 4, presents to the emergency room with family member complaining of right foot pain. Patient states he was working on his truck in the ball bearing fell off landing on the top of his foot. He states this happened around 2:00 this afternoon. He has been unable to bear weight or move his toes. He states that the pain is 10 out of 10. He states his tetanus shot is up-to-date. He is a pack and a half a day smoker. He does drink occasionally and does smoke marijuana occasionally. -: hour(s) (2) Location: right, lower extremity (Foot) Severity scale (1-10): 10 Quality: constant Consistency: constant Improves with: none Worsens with: movement Associated Symptoms: denies other symptoms Treatments Prior to Arrival: none - Related Data Home Medications Medication Instructions Recorded Confirmed Escitalopram [Lexapro] 10 mg PO DAILY 10/24/17 01/27/21 ARIPiprazole [Abilify] 5 mg PO DAILY 01/24/21 01/27/21 Previous Rx's Medication Instructions Recorded Azithromycin [Zithromax Z-pack (6 0 mg PO DIRECTED #1 pack 01/27/21 tabs)] Ibuprofen [Motrin] 600 mg PO Q8HR PRN #30 tab 03/13/21 Allergies Allergy/AdvReac Type Severity Reaction Status Date / Time No Known Allergies Allergy Verified 03/13/21 16:02 Review of Systems ROS Statement: Those systems with pertinent positive or pertinent negative responses have been documented in the HPI. ROS Other: All systems not noted in ROS Statement are negative. Past Medical History Past Medical History: Asthma, Pneumonia Additional Past Medical History / Comment(s): torn ACL right leg no repair done at this time. 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 History of Any Multi-Drug Resistant Organisms: None Reported Past Surgical History: No Surgical Hx Reported Additional Past Surgical History / Comment(s): wisdom teeth extraction Past Anesthesia/Blood Transfusion Reactions: No Reported Reaction Past Psychological History: ADD/ADHD, Anxiety, Depression Smoking Status: Current some day smoker Past Alcohol Use History: Occasional Past Drug Use History: None Reported - Past Family History Mother Family Medical History: Diabetes Mellitus, Hypertension Additional Family Medical History / Comment(s): MS, Fibromyalgia, stroke times two Father Family Medical History: Hyperlipidemia, Hypertension Additional Family Medical History / Comment(s): father is 55 years of age. Patient has 1 sister with no major medical problems. General Exam Limitations: no limitations General appearance: alert, in no apparent distress Head exam: Present: atraumatic, normocephalic, normal inspection Eye exam: Present: normal appearance, PERRL, EOMI. Absent: scleral icterus, conjunctival injection, periorbital swelling ENT exam: Present: normal exam, normal oropharynx, mucous membranes moist Neck exam: Present: normal inspection, full ROM. Absent: tenderness, meningismu s, lymphadenopathy Respiratory exam: Present: normal lung sounds bilaterally. Absent: respiratory distress, wheezes, rales, rhonchi, stridor Cardiovascular Exam: Present: bradycardia. Absent: JVD GI/Abdominal exam: Present: soft, normal bowel sounds. Absent: distended, tenderness, guarding, rebound, rigid Right Lower Leg exam: Present: normal inspection, full ROM. Absent: tenderness, swelling, abrasion Ankle exam: Present: tenderness (Right lateral malleolus), swelling Foot/Toe exam: Present: tenderness, swelling, ecchymosis (Great toe). Absent: full ROM, laceration, dislocation, erythema, calcaneal tenderness Neurovascular tendon exam: Present: no vascular compromise, motor deficit (Patient states unable to flex or extend the foot without significant pain). Absent: abnormal cap refill, sensory deficit, extremity cold to touch, pallor, decreased fine/light touch, foot drop Back exam: Present: full ROM. Absent: tenderness Neurological exam: Present: alert, oriented X3 Psychiatric exam: Present: normal affect, normal mood Skin exam: Present: warm, dry, intact, normal color. Absent: rash Course Vital Signs 03/13/21 15:59 Temperature 98.2 F Pulse Rate 57 L Respiratory 18 Rate Blood Pressure 137/73 O2 Sat by Pulse 98 Oximetry Medical Decision Making - Medical Decision Making X-ray of the right foot shows no fracture dislocation. Metatarsals are intact and the joint spaces are normal. Patient will be placed in an Dave wrap and given a post-op shoe with instructions to follow up with orthopedics in 1 week. Case discussed with Dr. Bee. Disposition Clinical Impression: Foot sprain Disposition: HOME SELF-CARE Condition: Good Instructions (If sedation given, give patient instructions): Foot Contusion (ED), Foot Sprain (ED) Additional Instructions: Rest, ice, wear Dave wrap and elevate at home. Take Motrin for the swelling. Follow up with orthopedics next week. Return to the emergency room with any new or worsening symptoms or increasing pain. Prescriptions: Ibuprofen [Motrin] 600 mg PO Q8HR PRN #30 tab PRN Reason: Pain Is patient prescribed a controlled substance at d/c from ED?: No Referrals: Denisa Baeza MD [Primary Care Provider] - 1-2 days Tahir Shelley MD [Medical Doctor] - 1-2 days Time of Disposition: 17:03
--- NOTE | 2021-03-13 16:47 | XR ---
EXAMINATION TYPE: XR foot complete RT DATE OF EXAM: 03/13/2021 COMPARISON: NONE HISTORY: Pain TECHNIQUE: 3 views FINDINGS: I see no fracture nor dislocation. Metatarsals are intact. Joint spaces are normal. There a re no erosions. IMPRESSION: Negative right foot exam.
[2021-03-13] MEDS ORDERED: ACET/COD 300 MG/30 MG STARTER PACK 6 TAB BTL PO STA (17:03)
== END 2021-03-13 17:13 | disposition home or self-care (01) ==
LOC: EC 15:23
DX: S93.601A Unspecified sprain of right foot, initial encounter (principal); J45.909 Unspecified asthma, uncomplicated; F12.90 Cannabis use, unspecified, uncomplicated; F17.210 Nicotine dependence, cigarettes, uncomplicated; Z79.1 Long term (current) use of non-steroidal anti-inflammatories (NSAID); F32.9 Major depressive disorder, single episode, unspecified; F41.9 Anxiety disorder, unspecified; F90.9 Attention-deficit hyperactivity disorder, unspecified type; F17.290 Nicotine dependence, other tobacco product, uncomplicated; W20.8XXA Other cause of strike by thrown, projected or falling object, initial encounter; Y99.0 Civilian activity done for income or pay
CPT/HCPCS: 99283